=== PATIENT | female | born 1965 | race Caucasian/White ===

== ENCOUNTER → 2023-05-31 06:34 | Day surgery (SDC) | payer OTHER, SELFPAY ==
[2023-05-31 14:56] LABS: Glucose - Point of Care 93 mg/dl (70-99)
== END ==
LOC: GI 06:34
PROVIDERS: ATTENDING PHYSICIAN Specialist; FAMILY PHYSICIAN Family Medicine
DX: Z12.11 Encounter for screening for malignant neoplasm of colon (principal); K57.30 Diverticulosis of large intestine without perforation or abscess without bleeding
CPT/HCPCS: 45380; 88305; 82962

== ENCOUNTER 2023-06-02 12:23 | Emergency (ER) | payer OTHER, SELFPAY ==
--- NOTE | 2023-06-02 12:52 | ED.GENMED ---
History of Present Illness
General
Chief Complaint: Abdominal Symptoms
Source: patient and spouse
Exam Limitations: none
Time Seen by Provider: 06/02/23 12:47
Nursing documentation reviewed up to this point in time: agreed with
Travel History
Have you had any contact with someone who has COVID-19?: No
Do you have any symptoms of coronavirus? Fever > 100 degrees, chills, cough, shortness of breath, sore throat, loss of taste or smell, muscle aches, or headache?: No
History of Present Illness
History of Present Illness:
57-year-old female history of chronic back and neck pain followed by pain management, COPD, GERD, NIDDM, gastroparesis states she had a colonoscopy 2 days ago and has felt nauseous since has vomited frequently since. Actively retching now. Hasn't
been able to hold anything down for days. Denies fever. Denies CP or SOB. Feels exactly the same as when she was had gastroparesis in the past.
Past History
Past History
ED Past Medical History: HTN, Hypercholesterolemia, Other (back pain, neck pain) and Other (Pancreatitis, insulin-dependent diabetes, hypertension)
ED Past Surgical History: Orthopedic and Tonsilectomy
Social History
Tobacco: Smoker
Alcohol: None
Drug: Marijuana (vape daily)
Personal:
Living: with family
Employment: Disabled
Family History
Family History: Negative Diabetes, Hypertension or CAD
Review of Systems
Review of Systems
Allergies reviewed?: Yes
All Other Systems: ROS reviewed and negative except as documented in HPI and ROS
Constitutional: Denies fever
Respiratory: Denies trouble breathing
Cardiac: Denies chest pain
ABD/GI: Reports nausea and vomiting; Denies abdominal pain, diarrhea, bloody stools or black stools
: Denies dysuria or difficulty voiding
Musculoskeletal: Reports neck pain (Chronic) and back pain (Chronic)
Skin: Reports no symptoms
Neurological: Reports no symptoms
Phy Exam
Physical Exam
Physical Exam:
GENERAL: Currently retching. A&Ox3.
CONSTITUTIONAL: Afebrile.
EYES: Clear, conjunctivae normal
ENMT: moist mucus membranes, Pharynx nl
RESPIRATORY: Regular respirations, nonlabored, lungs clear.
CARDIOVASCULAR: Regular rate and rhythm, no murmurs, no rubs.
GI: Soft, morbidly obese, nontender, normal BS
MUSCULOSKELETAL: Moves with ease. Well perfused.
SKIN: Warm, dry, pink
PSYCH: Anxious mood and affect. Well kept, interactive and appropriate
NEUROLOGIC: Awake, alert and oriented. No focal neurological deficits
Course
Orders/Labs/Results
Orders:
Orders
06/02/23 12:47
Test Result ONCE
06/02/23 12:48
Complete Blood Count/With Diff Urgent
Comprehensive Metabolic Panel Urgent
HCG, Serum Qualitative Screen Urgent
Lipase Urgent
06/02/23 12:57
Diphenhydramine [Benadryl] 50 mg IV NOW STA
Metoclopramide [Reglan] 10 mg IV NOW STA
06/02/23 12:58
0.9% Sodium Chloride 1000 ml [Nss] 1,000 ml IV BOLUS
06/02/23 13:36
Ondansetron Injectable [Zofran] 4 mg IV NOW STA
06/02/23 15:29
Metoclopramide [Reglan] 10 mg PO NOW STA
Abnormal Lab Results
06/02/23
12:48
MCH 31.5 H pg
(27.0-31.0)
BUN 5 L mg/dl
(7-17)
Glucose 132 H mg/dl
(70-99)
06/02/23 12:48
06/02/23 12:48
Vital Signs
Initial and Last Documented VS:
Initial Vital Signs
Temp Pulse Resp Pulse Ox
97.8 F 64 16 99
06/02/23 12:24 06/02/23 12:24 06/02/23 12:24 06/02/23 12:24
Last Documented Vital Signs
Temp Pulse Resp BP Pulse Ox
97.8 F 80 18 151/65 99
06/02/23 12:24 06/02/23 15:29 06/02/23 15:29 06/02/23 15:29 06/02/23 15:29
MDM/Problems Addressed
Differential Diagnosis Includes:
Gastroparesis, dehydration, opioid withdrawal
MDM/Problems Addressed:
57-year-old female history of chronic back and neck pain followed by pain management, COPD, GERD, NIDDM, gastroparesis states she had a colonoscopy 2 days ago and has felt nauseous since has vomited frequently since. Actively retching now. Hasn't
been able to hold anything down for days. Denies fever. Denies CP or SOB. Feels exactly the same as when she was had gastroparesis in the past.
Afebrile
06/02/2023 1336 PM
CBC normal
CMP normal
Lipase normal
hCG negative
Patient states after medication she is feeling better, 'took the edge off.' Is requesting Zofran, ordered.
06/02/2023 1438 PM
Patient continues to improve, is tolerating water, no further retching, wants to go home
Rx for Reglan given to her
Ambulated out with normal gait.
*Critical Care Note
Total Time (30-74mins, 75-104mins- exclusive of procedures): Not Applicable
ED Attending Note
-
Portions of this chart may have been created with voice recognition software.� Occasional wrong word or��sound alike� substitutions may have occurred due to the inherent limitations of voice recognition software.
Discharge Plan
Departure
Patient Disposition: Home (Routine Discharge)
Date of Disposition: 06/02/23
Time of Disposition: 15:27
Patient with high blood pressure during this ER visit?: No
Condition: Good
Discharge Problem:
Nausea & vomiting, Gastroparesis
Instructions: Clear Liquid Diet, Full Liquid Diet, Nausea and Vomiting, Adult
Prescriptions:
New
metoclopramide HCl [Reglan] 10 mg tablet
10 mg PO Q8HPRN PRN (Reason: nausea and vomiting) Qty: 10 0RF
No Action
atorvastatin 20 mg Tablet
20 mg PO HS
amitriptyline 75 mg Tablet
75 mg PO HS
cyanocobalamin (vitamin B-12) 1,000 mcg Tablet
1,000 mcg PO DAILY
oxycodone 15 mg Tablet
15 mg PO Q4H
Rx Instructions:
03/11/2023, patient filled this medication on 02/26/2023 for 150 tablets according to PDMP.
ascorbic acid (vitamin C) [Vitamin C] 500 mg Tablet
500 mg PO DAILY
lisinopril 10 mg Tablet
10 mg PO DAILY
gabapentin 300 mg Capsule
600 mg PO TID
omeprazole 20 mg Capsule,Delayed Release(Dr/Ec)
40 mg PO HS
zinc 50 mg Tablet
50 mg PO DAILY
lorazepam 1 mg Tablet
1 mg PO Q12H
Rx Instructions:
03/11/2023, patient filled this medication on 03/08/2023 for 60 tablets according to PDMP.
albuterol sulfate 90 mcg/actuation Hfa Aerosol Inhaler
1 puff INHALATION R Q4HPRN PRN (Reason: sob)
ondansetron 4 mg Tablet,Disintegrating
4 mg PO DAILYPRN PRN (Reason: nausea/vomiting)
Xtampza ER 9 mg Cap,Sprinkl,Er12hr(Dont Crush)
9 mg PO Q12H
Rx Instructions:
03/11/2023, patient filled this medication on 02/22/2023 for 60 capsules according to PDMP.
semaglutide 0.25 mg or 0.5 mg(2 mg/1.5 mL) Pen Injector
0.25 mg SC TU
Rx Instructions:
for 4 weeks
Medical Marijuana
0 puff inhalation UD PRN (Reason: sleep)
Patient Comments:
03/11/2023, patient states that they vape their marijuana 'a couple times a day' and it varies day by day.
clotrimazole 10 mg Laxmi
10 mg PO 5/D Qty: 60 0RF
nicotine 21 mg/24 hr Patch 24 Hour
21 mg transdermal DAILY Qty: 12 0RF
ondansetron 4 mg tablet,disintegrating
4 mg PO Q8H PRN (Reason: nausea and vomiting) 4 Days Qty: 10 0RF
amoxicillin-pot clavulanate 875-125 mg tablet
1 tab PO Q12H Qty: 14 0RF
Referrals:
Mohini Rush MD [Family Provider] - As needed
Isabel Joya MD [Active] - As needed
Activity Restrictions/Additional Instructions:
As discussed, use the Reglan as directed.
If you are feeling no better within the next 48 hours, follow-up with your family doctor or the GI doctor I have referred you to
Interventions
Interventions:
*Risk Screen - Suicide Last Done: 06/02/23 12:36
*General Assessment Last Done: 06/02/23 12:24
*Neglect/Abuse Screening Last Done: 06/02/23 12:36
*ED COVID-19 Vaccine History Last Done: 06/02/23 12:24
*Nursing Disposition Last Done: 06/02/23 15:54
SY-Lchdlj-Rpoioiprtn Assessment Last Done: 06/02/23 12:36
Discharge Date and Time
Discharge Date/Time: 06/02/23 15:55
[2023-06-02 12:54] LABS: % Basophils 1.2 % (0-2); % Eosinophils 0.9 % (0-6); % Immature Granulocytes 0.1 % (0-0.5); % Lymphocytes 20.9 % (20.5-51.1); % Monocytes 7.7 % (1.7-9.3); % Neutrophils 69.2 % (42.2-75.2); Absolute Basophils 0.1 10^3/uL (0-0.2); Absolute Eosinophils 0.1 10^3/uL (0-0.7); Absolute Lymphocytes 1.6 10^3/uL (1.2-3.4); Absolute Monocytes 0.6 10^3/uL (0.1-0.6); Absolute Neutrophils 5.4 10^3/uL (1.4-6.5); Hematocrit 42.5 % (37.0-47.0); Mean Corp Hgb Conc. 35.3 g/dL (33.0-37.0); Mean Corpuscular Hgb 31.5 pg (27.0-31.0); Mean Corpuscular Volume 89.3 fL (81.0-99.0); Mean Platelet Volume 9.4 fL (7.4-10.4); Nucleated Red Blood Cells % 0 %; Platelet Count 237 10^3/uL (130-400); Red Blood Cell Count 4.76 10^6/uL (4.20-5.40); Red Cell Dist. Width 12.5 % (11.5-14.5); White Blood Cell Count 7.8 10^3/uL (4.8-10.8)
[2023-06-02] MEDS: REGLAN 10 MG IV (13:03)
[2023-06-02] MEDS: BENADRYL 50 MG IV (13:03)
[2023-06-02] MEDS: NSS 1000 IV (13:03)
[2023-06-02 13:12] LABS: HCG, Serum Qualitative Screen Negative
[2023-06-02 13:17] LABS: ALT (SGPT) 23 U/L (0-35); AST (SGOT) 36 U/L (14-36); Albumin 4.3 g/dl (3.5-5.0); Alkaline Phosphatase 117 U/L (38-126); Blood Urea Nitrogen 5 mg/dl (7-17); Calcium 9.3 mg/dl (8.4-10.2); Carbon Dioxide 25 mmol/L (22-30); Chloride 106 mmol/L (98-107); Glucose 132 mg/dl (70-99); Lipase 103 U/L (23-300); Potassium 3.7 mmol/L (3.5-5.1); Sodium 136 mmol/L (135-145); Total Bilirubin 0.8 mg/dl (0.2-1.3); Total Protein 6.9 g/dl (6.3-8.2); eGFR > 60.00
[2023-06-02] MEDS: ZOFRAN 4 MG IV (13:47)
[2023-06-02 15:29] VITALS: BP 151/65
[2023-06-02] MEDS: REGLAN 10 MG PO (15:37)
== END 2023-06-02 15:55 | disposition home or self-care (01) ==
LOC: EMR 12:23
PROVIDERS: EMERGENCY PHYSICIAN Emergency Medicine; FAMILY PHYSICIAN Family Medicine
DX: K31.84 Gastroparesis (principal); R11.2 Nausea with vomiting, unspecified; R10.84 Generalized abdominal pain; M54.2 Cervicalgia; M54.9 Dorsalgia, unspecified; J44.9 Chronic obstructive pulmonary disease, unspecified; K21.9 Gastro-esophageal reflux disease without esophagitis; I10 Essential (primary) hypertension; E11.43 Type 2 diabetes mellitus with diabetic autonomic (poly)neuropathy; E66.01 Morbid (severe) obesity due to excess calories; E78.00 Pure hypercholesterolemia, unspecified; F41.9 Anxiety disorder, unspecified; G89.29 Other chronic pain; F17.210 Nicotine dependence, cigarettes, uncomplicated; Z79.4 Long term (current) use of insulin; Z98.890 Other specified postprocedural states; Z87.01 Personal history of pneumonia (recurrent)
CPT/HCPCS: 99284; 96374; 96375 ×2; 96361; 80053; 83690; 84703; 85025

== ENCOUNTER → 2023-06-28 16:05 | Outpatient (REF) | payer OTHER, SELFPAY | LOC: RAD 16:05 | PROVIDERS: ATTENDING PHYSICIAN Neurological Surgery; FAMILY PHYSICIAN Family Medicine | DX: M54.12 Radiculopathy, cervical region (principal) | CPT/HCPCS: 72052; 72125 ==

== ENCOUNTER → 2023-10-14 14:54 | Outpatient (REF) | payer OTHER, SELFPAY | LOC: HWRAD 14:54 | PROVIDERS: ATTENDING PHYSICIAN Specialist; FAMILY PHYSICIAN Family Medicine | DX: R63.4 Abnormal weight loss (principal) | CPT/HCPCS: 74177; Q9967 ==

== ENCOUNTER → 2023-11-28 09:12 | Outpatient (REF) | payer OTHER, SELFPAY | LOC: MRI 09:12 | PROVIDERS: ATTENDING PHYSICIAN Nurse Practitioner Acute Care; FAMILY PHYSICIAN Family Medicine | DX: M54.12 Radiculopathy, cervical region (principal) | CPT/HCPCS: 72141 ==

== ENCOUNTER → 2024-06-08 11:56 | Outpatient (REF) | payer OTHER, SELFPAY | LOC: HWRAD 11:56 | PROVIDERS: ATTENDING PHYSICIAN Family Medicine | DX: R05.3 Chronic cough (principal) | CPT/HCPCS: 71046 ==

== ENCOUNTER 2024-06-28 12:21 | Emergency (ER) | payer OTHER, SELFPAY ==
[2024-06-28 12:28] VITALS: BP 168/89
[2024-06-28 12:32] VITALS: BMI 31.4
[2024-06-28 12:53] VITALS: BP 156/104
[2024-06-28 13:00] VITALS: BP 152/82
[2024-06-28] MEDS: PEPCID 20 MG IV (13:00)
[2024-06-28] MEDS: BENADRYL 50 MG IV (13:00)
[2024-06-28] MEDS: NSS 1000 IV (13:00)
[2024-06-28] MEDS: REGLAN 10 MG IV (13:01)
[2024-06-28 13:04] LABS: % Basophils 1.1 % (0-2); % Immature Granulocytes 0.4 % (0-0.5); % Lymphocytes 22.3 % (20.5-51.1); % Monocytes 6.3 % (1.7-9.3); % Neutrophils 67.9 % (42.2-75.2); Absolute Basophils 0.1 10^3/uL (0-0.2); Absolute Eosinophils 0.2 10^3/uL (0-0.7); Absolute Lymphocytes 1.9 10^3/uL (1.2-3.4); Absolute Monocytes 0.5 10^3/uL (0.1-0.6); Absolute Neutrophils 5.8 10^3/uL (1.4-6.5); Hematocrit 43.7 % (37.0-47.0); Hemoglobin 14.5 g/dL (12.0-16.0); Mean Corp Hgb Conc. 33.2 g/dL (33.0-37.0); Mean Corpuscular Hgb 30.5 pg (27.0-31.0); Mean Corpuscular Volume 91.8 fL (81.0-99.0); Mean Platelet Volume 8.9 fL (7.4-10.4); Nucleated Red Blood Cells % 0 %; Platelet Count 360 10^3/uL (130-400); Red Blood Cell Count 4.76 10^6/uL (4.20-5.40); Red Cell Dist. Width 12.7 % (11.5-14.5); White Blood Cell Count 8.5 10^3/uL (4.8-10.8)
[2024-06-28 13:26] LABS: ALT (SGPT) 20 U/L (0-35); AST (SGOT) 27 U/L (14-36); Albumin 3.9 g/dl (3.5-5.0); Alkaline Phosphatase 135 U/L (38-126); Blood Urea Nitrogen 6 mg/dl (7-17); Calcium 9.5 mg/dl (8.4-10.2); Carbon Dioxide 27 mmol/L (22-30); Chloride 103 mmol/L (98-107); Estimated Creatinine Clearance 79 ml/min; Glucose 122 mg/dl (70-99); Lipase 73 U/L (23-300); Potassium 4.2 mmol/L (3.5-5.1); Sodium 136 mmol/L (135-145); Total Bilirubin 0.7 mg/dl (0.2-1.3); Total Protein 6.8 g/dl (6.3-8.2); eGFR > 60.00
--- NOTE | 2024-06-28 13:58 | ED.GENMED ---
History of Present Illness
General
Chief Complaint: Abdominal Symptoms
Source: patient
Exam Limitations: none
Time Seen by Provider: 06/28/24 12:35
Nursing documentation reviewed up to this point in time: agreed with
History of Present Illness
History of Present Illness:
58-year-old female with a history of gastroparesis, diabetes, chronic marijuana use presents for nausea and vomiting over the last 3 days. Patient says it was pretty bad when it started and she vomited most anything she drank for about 24 hours and
then she could sip on some electrolytes yesterday without vomiting. She did have
Recurrence of symptoms overnight and is here feeling very weak and dehydrated. She has some epigastric burning. This is common for her with her gastroparesis episodes. Patient is on Ozempic for her sugar and says she has been on it for a while
without any adjustment in medication dose. She is not having any vomiting blood, black stool, fever or chills. Patient was here 1 month ago for the same thing and was given Reglan and Benadryl and did better, she did get 1 dose of Zofran as well
and went home.
Patient tried a dose of oral ODT Zofran at home without relief, she vomited immediately after
she has had gastroparesis on gastric emptying study
she isn't really haing abdominal pain just the epigastric burning which is typical for her
she does take oxycodone 15 mg IR and hasn't been taking it becuase of the vomiting
able to pass gas
Past History
Past History
ED Past Medical History: HTN, Hypercholesterolemia, Other (back pain, neck pain) and Other (Pancreatitis, insulin-dependent diabetes, hypertension)
ED Past Surgical History: Orthopedic and Tonsilectomy
Social History
Tobacco: Smoker
Alcohol: None
Drug: Marijuana (vape daily)
Personal:
Living: with family
Employment: Disabled
Family History
Family History: Negative Diabetes, Hypertension or CAD
Review of Systems
Review of Systems
Allergies reviewed?: Yes
All Other Systems: Not applicable
Phy Exam
Physical Exam
Physical Exam:
GENERAL: Alert , dry heaving
EYE: pupils equal and reactive
NECK: Supple
ENT: o/p clr dry mouth
CARDIAC: Regular rate and rhythm .
LUNGS: Clear breath sounds bilaterally, no acute respiratory distress, no wheezes/rales/rhonchi
ABDOMEN: Soft, without focal tenderness, no r/g, no cvat, normal bowel sounds
NEUROLOGICAL: Alert and oriented, no focal neuro deficits
SKIN: Warm and dry, skin intact.
MUSCULOSKELETAL: No edema, well perfused. neg gulshan's sign
PSYCH: Normal and appropriate interaction.
Course
Orders/Labs/Results
Orders:
Orders
06/28/24 12:32
IV Insert/Care/Rem.- Treatment PRN
06/28/24 12:37
Electrocardiogram (*1) Urgent
Reason for Study: QTc Monitoring
EKG- Treatment ONCE
06/28/24 12:53
0.9% Sodium Chloride 1000 ml [Nss] 1,000 ml IV BOLUS
Diphenhydramine [Benadryl] 50 mg IV NOW STA
Famotidine [Pepcid] 20 mg IV NOW STA
Metoclopramide [Reglan] 10 mg IV NOW STA
06/28/24 12:56
Complete Blood Count/With Diff Urgent
Comprehensive Metabolic Panel Urgent
Lipase Urgent
06/28/24 15:02
Ondansetron Injectable [Zofran] 4 mg IV NOW STA
06/28/24 15:19
Urinalysis Reflex To Culture Urgent
Date Specimen was Collected: 06/28/24
Time Specimen was Collected: 15:13
Urine Microscopic Reflex Cult Urgent
06/28/24 15:54
Oxycodone [Roxicodone] 15 mg PO NOW STA
Abnormal Lab Results
06/28/24 06/28/24
12:56 15:19
BUN 6 L mg/dl
(7-17)
Glucose 122 H mg/dl
(70-99)
Alkaline Phosphatase 135 H U/L
(38-126)
Urine Ketones 2+ A
(Negative)
Ur Occult Blood Reflex 1+ A
(Negative)
06/28/24 12:56
06/28/24 12:56
Vital Signs
Initial and Last Documented VS:
Initial Vital Signs
Temp Pulse Resp BP Pulse Ox
36.8 C 88 20 168/89 98
06/28/24 12:28 06/28/24 12:28 06/28/24 12:28 06/28/24 12:28 06/28/24 12:28
Last Documented Vital Signs
Temp Pulse Resp BP Pulse Ox
36.8 C 71 16 168/89 98
06/28/24 12:28 06/28/24 12:51 06/28/24 12:51 06/28/24 12:28 06/28/24 12:28
MDM/Problems Addressed
Differential Diagnosis Includes:
gastroparesis, cannabis hyperemesis
MDM/Problems Addressed:
58 y/o F with h/o DM, gastroparesis
here with nausea/vomiting
3 days but had 1 day in between that she was able to tolerate liquids
she has minmal pain, just more nausea
no fever
dry heaving, dry mouth on arrival
afebrile
normal wbc
mild epigastric tenderness
nondistended
feeling much better after relgan and iv fluids
asked for 1 dose zofran
and then asked for her regular pain meds which she hasn't been taking
confirmed via PDMP
1 dose oral morphine tolerated
no vomiting
d/chome
*Critical Care Note
Total Time (30-74mins, 75-104mins- exclusive of procedures): Not Applicable
ED Attending Note
-
Portions of this chart may have been created with voice recognition software.� Occasional wrong word or��sound alike� substitutions may have occurred due to the inherent limitations of voice recognition software.
Discharge Plan
Departure
Patient Disposition: Home (Routine Discharge)
Date of Disposition: 06/28/24
Time of Disposition: 16:08
Patient with high blood pressure during this ER visit?: No
Condition: Fair
Discharge Problem:
Vomiting
Instructions: Nausea and Vomiting, Adult (DC)
Prescriptions:
New
metoclopramide HCl [Reglan] 10 mg tablet
10 mg PO Q8HPRN PRN (Reason: nausea and vomiting) Qty: 5 0RF
No Action
atorvastatin 20 mg Tablet
20 mg PO HS
amitriptyline 75 mg Tablet
75 mg PO HS
cyanocobalamin (vitamin B-12) 1,000 mcg Tablet
1,000 mcg PO DAILY
oxycodone 15 mg Tablet
15 mg PO Q4H
Rx Instructions:
03/11/2023, patient filled this medication on 02/26/2023 for 150 tablets according to PDMP.
ascorbic acid (vitamin C) [Vitamin C] 500 mg Tablet
500 mg PO DAILY
lisinopril 10 mg Tablet
10 mg PO DAILY
gabapentin 300 mg Capsule
600 mg PO TID
omeprazole 20 mg Capsule,Delayed Release(Dr/Ec)
40 mg PO HS
zinc 50 mg Tablet
50 mg PO DAILY
lorazepam 1 mg Tablet
1 mg PO Q12H
Rx Instructions:
03/11/2023, patient filled this medication on 03/08/2023 for 60 tablets according to PDMP.
albuterol sulfate 90 mcg/actuation Hfa Aerosol Inhaler
1 puff INHALATION R Q4HPRN PRN (Reason: sob)
ondansetron 4 mg Tablet,Disintegrating
4 mg PO DAILYPRN PRN (Reason: nausea/vomiting)
Xtampza ER 9 mg Cap,Sprinkl,Er12hr(Dont Crush)
9 mg PO Q12H
Rx Instructions:
03/11/2023, patient filled this medication on 02/22/2023 for 60 capsules according to PDMP.
semaglutide 0.25 mg or 0.5 mg(2 mg/1.5 mL) Pen Injector
0.25 mg SC TU
Rx Instructions:
for 4 weeks
Medical Marijuana
0 puff inhalation UD PRN (Reason: sleep)
Patient Comments:
03/11/2023, patient states that they vape their marijuana 'a couple times a day' and it varies day by day.
clotrimazole 10 mg Laxmi
10 mg PO 5/D Qty: 60 0RF
nicotine 21 mg/24 hr Patch 24 Hour
21 mg transdermal DAILY Qty: 12 0RF
ondansetron 4 mg tablet,disintegrating
4 mg PO Q8H PRN (Reason: nausea and vomiting) 4 Days Qty: 10 0RF
amoxicillin-pot clavulanate 875-125 mg tablet
1 tab PO Q12H Qty: 14 0RF
metoclopramide HCl [Reglan] 10 mg tablet
10 mg PO Q8HPRN PRN (Reason: nausea and vomiting) Qty: 10 0RF
Referrals:
Mohini Rush MD [Family Provider] - Follow up in 2-3 days
Activity Restrictions/Additional Instructions:
YOUR BLOOD WORK WAS REASSURING
WATCH YOUR SYMPTOMS CLOSELY
RETURN FOR: WORSENING/CONTINUED VOMITING, ABDOMINAL SWELLING, NOT PASSING GAS, FEVER, ETC
YOU CAN TAKE EITHER ZOFRAN OR REGLAN FO RYOUR VOMITING, DO NOT TAKE BOTH COMBINED;
OTHERWISE SEE YOUR FAMILY DOCTOR AND GI DOCTOR
Interventions
Interventions:
*Risk Screen - Suicide Last Done: 06/28/24 12:28
*General Assessment Last Done: 06/28/24 12:53
*ED COVID-19 Vaccine History Last Done: 06/28/24 12:28
Discharge Date and Time
Print Language: OCCITAN
[2024-06-28 14:00] VITALS: BP 152/86
[2024-06-28 15:00] VITALS: BP 139/92
[2024-06-28 15:28] LABS: Urine Albumin Negative (Neg - Trace); Urine Bilirubin Negative (Negative); Urine Character Clear (Clear); Urine Color Yellow; Urine Glucose Negative (Negative); Urine Ketone 2+ (Negative); Urine Leukocyte Negative (Negative); Urine Nitrite Negative (Negative); Urine Occult Blood 1+ (Negative); Urine Urobilinogen Negative (Neg - 1+)
[2024-06-28 15:41] LABS: Urine Red Blood Cell 0-2 /HPF (0-2)
[2024-06-28] MEDS: ZOFRAN 4 MG IV (15:41)
[2024-06-28] MEDS: ROXICODONE 15 MG PO (15:57)
[2024-06-28 16:00] VITALS: BP 160/98
== END 2024-06-28 17:00 | disposition home or self-care (01) ==
LOC: EMR 12:21
PROVIDERS: Physician Assistant; EMERGENCY PHYSICIAN Emergency Medicine; FAMILY PHYSICIAN Family Medicine
DX: R11.2 Nausea with vomiting, unspecified (principal); R10.9 Unspecified abdominal pain; R53.1 Weakness; K31.84 Gastroparesis; R68.2 Dry mouth, unspecified; E11.43 Type 2 diabetes mellitus with diabetic autonomic (poly)neuropathy; E78.00 Pure hypercholesterolemia, unspecified; I10 Essential (primary) hypertension; F12.90 Cannabis use, unspecified, uncomplicated; F17.210 Nicotine dependence, cigarettes, uncomplicated
CPT/HCPCS: 99284; 96374; 96375 ×3; 96361; 80053; 81003; 81015; 83690; 85025; 93005

== ENCOUNTER → 2024-09-22 12:39 | Outpatient (REF) | payer OTHER, SELFPAY | LOC: HWRAD 12:39 | PROVIDERS: ATTENDING PHYSICIAN Family Medicine; REFERRING PHYSICIAN Neurological Surgery | DX: R41.3 Other amnesia (principal) | CPT/HCPCS: 70450; 72125 ==

== ENCOUNTER → 2024-10-08 13:35 | Outpatient (REF) | payer OTHER, SELFPAY | LOC: RAD 13:35 | PROVIDERS: ATTENDING PHYSICIAN Family Medicine | DX: R91.1 Solitary pulmonary nodule (principal) | CPT/HCPCS: 71260; Q9967 ==

== ENCOUNTER → 2024-12-02 14:52 | Outpatient (REF) | payer OTHER, SELFPAY | LOC: PAVMRI 14:52 | PROVIDERS: ATTENDING PHYSICIAN Neurological Surgery; FAMILY PHYSICIAN Family Medicine | DX: M54.12 Radiculopathy, cervical region (principal) | CPT/HCPCS: 72141 ==

== ENCOUNTER → 2025-01-13 14:02 | Outpatient (REF) | payer OTHER, SELFPAY | LOC: HWRAD 14:02 | PROVIDERS: ATTENDING PHYSICIAN Neurological Surgery; FAMILY PHYSICIAN Family Medicine | DX: M54.12 Radiculopathy, cervical region (principal) | CPT/HCPCS: 72050 ==

== ENCOUNTER → 2025-04-06 14:55 | Outpatient (REF) | payer OTHER, SELFPAY | LOC: HWRAD 14:55 | PROVIDERS: ATTENDING PHYSICIAN Family Medicine | DX: R33.9 Retention of urine, unspecified (principal); R32 Unspecified urinary incontinence | CPT/HCPCS: 76770 ==